=== PATIENT | male | born 1940 | race Two or more races ===

== ENCOUNTER 2018-01-18 15:51 | Inpatient (IN) | payer MEDICARE, MEDICAID ==
[~2018-01-18] VITALS: Ht 167.6 cm; Wt 78.0 kg
[~2018-01-18 15:51] MED LIST: ACET325T53 PO; CARB1TAB14 PO; DILT30TA2 PO; DOCU-270 PO; ENTA200T PO; LORA-259 PO; LUBI24CA5 PO; METF10004 PO; METO25TA6 PO; MULT1TAB73 PO; OMEP10CA4 PO; POLY17PO4 PO; SENN8.6C5 PO; SITA50TA PO; [UNRECOGNIZED DRUG - OTHER]
--- NOTE | 2018-01-18 16:00 | NUR ---
FROM [facility]- HEMATURIA, HYPOTENSIVE. SEEN BY MD FOR EVAL. VSS. SAFETY AND COMFORT MEASURES PROVIDED. WILL MONITOR.
[2018-01-18] MEDS ORDERED: CARB1TAB21 PO (16:09)
[2018-01-18] MEDS ORDERED: GABA-534 PO (16:09)
[2018-01-18] MEDS ORDERED: ENTA200T PO (16:09)
[2018-01-18] MEDS ORDERED: TAMS-12 PO (16:09)
[2018-01-18] MEDS ORDERED: TRAM50TA2 PO (16:09)
[2018-01-18] MEDS ORDERED: AMIN30LI4 PO (16:09)
[2018-01-18] MEDS ORDERED: MAGN400O6 PO (16:09)
[2018-01-18] MEDS ORDERED: DOCU-141 PO (16:09)
[2018-01-18] MEDS ORDERED: BLOO-697 IN (16:09)
[2018-01-18 16:23] LABS: BASOPHILS # (AUTO) 0.1 /CMM (0.0-0.2); BASOPHILS % (AUTO) 1.4 % (0.0-2.0); EOSINOPHILS % (AUTO) 2.6 % (0.0-6.0); HEMATOCRIT 35 % (39-51); HEMOGLOBIN 11.9 g/dL (13.5-17.5); LYMPHOCYTES # (AUTO) 1.3 /CMM (0.8-4.8); LYMPHOCYTES % (AUTO) 18.1 % (20.0-44.0); MEAN CORPUSCULAR HEMOGLOBIN 31 PG (26.0-33.0); MEAN CORPUSCULAR HGB CONC 34 g/dl (31.0-36.0); MEAN CORPUSCULAR VOLUME 89 fL (80-96); MONOCYTES # (AUTO) 0.3 /CMM (0.1-1.30); MONOCYTES % (AUTO) 4.8 % (2.0-12.0); NEUTROPHILS # (AUTO) 5.2 /CMM (1.8-8.9); NEUTROPHILS % (AUTO) 73.1 % (43.0-81.0); PLATELET COUNT (AUTO) 371 /CMM (150-450); RDW COEFFICIENT OF VARIATION 15.3 (11.5-15.0); RED BLOOD CELL COUNT(AUTO) 3.92 MIL/uL (4.5-6.0); WHITE BLOOD COUNT (AUTO) 7.1 K/uL (4.3-11.0)
[2018-01-18 16:33] LABS: CALCIUM, SERUM 8.7 mg/dL (8.5-10.1); CARBON DIOXIDE 25 mmol/L (21-32); CHLORIDE 105 mmol/L (98-107); CREATININE 1.2 mg/dL (0.6-1.3); GLUCOSE 98 mg/dL (74-106); POTASSIUM 4.3 mmol/L (3.5-5.1); SODIUM SERUM 141 mmol/L (136-145); UREA NITROGEN, BLOOD 29 mg/dL (7-18)
[2018-01-18 16:37] LABS: INR 0.97 (0.85-1.15)
[2018-01-18 16:38] LABS: ALANINE AMINOTRANSFERASE 12 U/L (12-78); ALBUMIN 3.1 g/dL (3.4-5.0); ALKALINE PHOSPHATASE 66 U/L (46-116); ASPARTATE AMINOTRANSFERASE 10 U/L (15-37); BILIRUBIN,DIRECT 0.1 mg/dL (0.0-0.2); BILIRUBIN,TOTAL 0.4 mg/dL (0.2-1.0); TOTAL PROTEIN, SERUM 6.8 g/dL (6.4-8.2)
--- NOTE | 2018-01-18 17:55 | NUR ---
NOTED STONE ON PENILE OPENING. MD AWARE, PULLED OUT STONE AND SENT TO LABS. URINE SAMPLE OBTAINED VIA IN AND OUTA CATH, SAMPLE SENT.
[2018-01-18 18:25] LABS: APPEARANCE,URINE Slightly Cloudy (CLEAR); BILIRUBIN,URINE Negative (NEGATIVE); BLOOD, URINE Large Ery/uL (NEGATIVE); COLOR,URINE Dark (YELLOW); KETONES,URINE Trace (NEGATIVE); LEUKOCYTE ESTERASE ,URINE Trace (NEGATIVE); NITRITE, URINE Negative (NEGATIVE); PH,URINE 5.5 (5.0-8.0); PROTEIN,URINE Negative (NEGATIVE); UGLUCOSE Negative (NEGATIVE); UROBILINOGEN,URINE 0.2 EU/dL (0.2)
[2018-01-18 18:38] LABS: BACTERIA,URINE Few /HPF (None Seen); RBC,URINE 21-50 /HPF (0-2); SQUAMOUS EPITHELIAL CELL,UR Few /HPF (None Seen)
--- NOTE | 2018-01-18 19:16 | NUR ---
ASSUMED CARE. RECEIVED REPORT FROM AM SHIFT SALLY ABDULLAHI. PT RESTING IN BED QUIETLY, NO ACUTE DISTRESS NOTED, RESP EVEN AND UNLABORED. PT ON CARDIAC MONITORING, CONTINUOUS POX, PLACE PT ON O2@2L/NC DUE TO PT O2 SAT 89% ON RA. PT AT BEDSIDE. WILL CONTINUE TO MONITOR PT CLOSELY.
--- NOTE | 2018-01-18 19:28 | NUR ---
REPORT GIVEN TO ED FOR SAMIRA.
--- NOTE | 2018-01-18 19:32 | NUR ---
Paged physician interventional cardiologist panel, Poncho Chen
--- NOTE | 2018-01-18 20:08 | NUR ---
PATIENT WILL B E ADMITTED TO MS 314-2 BUSINESS INTELLIGENCE MANAGER MARISOL LUJAN DX NEPHROLITHIASIS
--- NOTE | 2018-01-18 20:16 | NUR ---
REPORT CALLED TO M/S SALLY ERAZO. WILL TRANSPORT PT TO ROOM 314-2.
[2018-01-18 20:45] VITALS: BP 144/88
[2018-01-18] MEDS ORDERED: Z GUARD REMEDY 2 OZ OINT TP PRN (21:30)
[2018-01-18] MEDS ORDERED: MAG HYDROX/AL HYDROX/SIMETH 30 ML UDC PO PRN (21:30)
[2018-01-18] MEDS ORDERED: HYDROCODONE/APAP 5/325MG 1 EACH TABLET PO PRN (21:30)
[2018-01-18] MEDS ORDERED: MAGNESIUM HYDROXIDE 30 ML UDC PO PRN (21:30)
[2018-01-18] MEDS ORDERED: ONDANSETRON HCL/PF 4 MG/2 ML VIAL IVP PRN (21:30)
--- NOTE | 2018-01-18 21:45 | NUR ---
MS SALLY NEW ADMISSION NOTES RECEIVED PT FROM ER VIA [facility], ACCOMPANIED BY STAFF & TO ROOM 309-1 WITH C/O HEMATURIA & HYPOTENSION. A & O X 1, CONFUSED/FORGETFUL DUE TO DEMENTIA. NO S/S OF PAIN, NO SOB, NO ACUTE CHANGES NOTED. VS CHECKED & STABLE. NO HYPOTENSION NOTED. RESPONSIVE TO VERBAL/TACTILE STIMULI. BODY CHECK DONE & DOCUMENTED. BELONGING LIST REVIEWED BY CLAY STRUCTURE BUILDER AND SERVICER WITH . DENTURE/GLASSES LEFT @ [facility], PER . PLACED ON O2 @ 2 LPM FOR BERTHING COMFORT. INCONTINENT OF B & BM. IV ACCESS TO RFA, INTACT PATENT. ALL ORDERS REVIEWED WITH MD, NOTED & CARRIED OUT. SAFETY MEASURES IN PLACE. BED ALARM ON. BED IN LOW LOCKED POSITION. CALL LIGHT WITHIN REACH. PLACED CLOSE TO THE STATION FOR SAFETY. WILL MONITOR CLOSELY.
[2018-01-18 21:47] VITALS: BP 144/88
--- NOTE | 2018-01-18 22:15 | NUR ---
SEEN BY THERAPIST RRT PT SEEN & ASSESSED BY ROMANA DAMON. NO HEMATURIA NOTED WHILE CHANGED THE DIAPER. MARISOL STATED TO OBSERVE CLOSELY FOR HEMATURIA & HYPOTENSION. WILL MONITOR CLOSELY.
[2018-01-18] MEDS: IV NS 0.9% 1,000 ML IV PRN (22:27)
[2018-01-18] MEDS: TAMSULOSIN 0.4 MG CAP.SR.24H PO SCH (22:35)
[2018-01-18] MEDS: GABAPENTIN 300 MG CAPSULE PO SCH (22:36)
--- NOTE | 2018-01-18 22:37 | NUR ---
MS RN NOTE PO MEDS GIVEN WITH APPLE SAUCE, TOLERATED WELL SO FAR, NO COUGH NOTED, TAKES TIME TO SWALLOW. WILL MONITOR CLOSELY.
--- NOTE | 2018-01-19 03:16 | NUR ---
NO HEMATURIA NOTED CHANGED PT'S DIAPER, NO ACTIVE BLEEDING NOTED. NOTED TO BE INCONTINENT, URINATED DARK YELLOW COLOR URINE. ON IVF ORDERED. MONITORING CLOSELY.
--- NOTE | 2018-01-19 04:25 | NUR ---
MS RN NOTE PT IS AWAKE, ORAL CARE PROVIDED. ASSISTED WITH FEEDING OF APPLE SAUCE, SMALL AMOUNT BUT PT STARTED COUGHING. IN MORALES POSITION. STOPPED FEEDING HIM RIGHT AWAY. WILL WAIT UNTIL SWALLOW EVAL IS DONE. ON IVF ORDERED FOR HYDRATION. WILL ENDORSE TO AM RN FOR ASPIRATION PRECAUTIONS.
--- NOTE | 2018-01-19 05:30 | NUR ---
ms rn note verbalized that once pt gets discharged from the hospital, she wants him to go back to [facility]. will endorse to am rn to endorse to CM.
[2018-01-19 06:02] LABS: EOSINOPHILS % (AUTO) 0.3 % (0.0-6.0); HEMATOCRIT 36 % (39-51); HEMOGLOBIN 12.2 g/dL (13.5-17.5); LYMPHOCYTES # (AUTO) 0.5 /CMM (0.8-4.8); MEAN CORPUSCULAR HEMOGLOBIN 31 PG (26.0-33.0); MEAN CORPUSCULAR HGB CONC 34 g/dl (31.0-36.0); MEAN CORPUSCULAR VOLUME 92 fL (80-96); MONOCYTES # (AUTO) 0.4 /CMM (0.1-1.30); MONOCYTES % (AUTO) 3.1 % (2.0-12.0); NEUTROPHILS # (AUTO) 10.6 /CMM (1.8-8.9); NEUTROPHILS % (AUTO) 92.6 % (43.0-81.0); PLATELET COUNT (AUTO) 294 /CMM (150-450); RDW COEFFICIENT OF VARIATION 16.6 (11.5-15.0); RED BLOOD CELL COUNT(AUTO) 3.92 MIL/uL (4.5-6.0); WHITE BLOOD COUNT (AUTO) 11.4 K/uL (4.3-11.0)
[2018-01-19 06:22] LABS: CALCIUM, SERUM 8.4 mg/dL (8.5-10.1); CARBON DIOXIDE 22 mmol/L (21-32); CHLORIDE 107 mmol/L (98-107); CREATININE 1.1 mg/dL (0.6-1.3); GLUCOSE 144 mg/dL (74-106); MAGNESIUM 1.3 mg/dL (1.8-2.4); PHOSPHORUS 2.4 mg/dL (2.5-4.9); SODIUM SERUM 141 mmol/L (136-145); UREA NITROGEN, BLOOD 24 mg/dL (7-18)
[2018-01-19 06:23] LABS: CHOLESTEROL 139 mg/dL (<200); HDL CHOLESTEROL 43 mg/dL (40-60); LDL 90 mg/dL (0-99); THYROID STIMULATING HORMONE 1.252 uIU/mL (0.358-3.74); TRIGLYCERIDES 67 mg/dL (30-150)
--- NOTE | 2018-01-19 06:36 | NUR ---
MS RN CLOSING NOTES PT SLEPT INTERMITTENTLY. A & O X 1, CONFUSED/FORGETFUL. NO S/S OF PAIN, NO SOB, NO ACUTE CHANGES NOTED. NO HYPOTENSION NOTED. RESPONSIVE TO VERBAL/TACTILE STIMULI. ON O2 @ 2 LPM FOR BERTHING COMFORT. INCONTINENT OF B & BM. IV ACCESS TO RFA, INTACT PATENT WITH IVF ORDERED. NO HEMATURIA NOTED. SAFETY MEASURES IN PLACE. BED ALARM ON. BED IN LOW LOCKED POSITION. CALL LIGHT WITHIN REACH. WILL ENDORSE TO AM RN FOR CONTINUITY OF CARE.
--- NOTE | 2018-01-19 07:30 | NUR ---
RN OPENING NOTE RECEIVED PT. PT IS STABLE AND SLEEPING IN BED. NO S/S OF RESP DISTRESS OR SOB. PT DOES NOT APPEAR TO BE IN PAIN. NO S/S OF BLEEDING OR INDICATIONS OF PASSED KIDNEY STONE NOTED. IV ACCESS LOCATED ON RFA 18G INFUSING NS AT 75 ML/HR. PER FORTUNE TELLER REPORT, PT ASPIRATED ON APPLESAUCE DURING PO CUSTOMER CARE REPRESENTATIVE IN AM, WILL F/U WITH THERAPY FOR ST EVAL. SAFETY MEASURES IN PLACE, CALL LIGHT WITHIN REACH. WILL CONTINUE TO MONITOR.
[2018-01-19 08:00] VITALS: BP 92/54
[2018-01-19] MEDS: ENTACAPONE 200 MG TABLET PO SCH ×3 (08:22→17:29)
[2018-01-19] MEDS: CARBIDOPA/LEVODOPA 25/100 MG 1 UDTAB PO SCH ×3 (08:22→17:29)
[2018-01-19] MEDS: METOPROLOL TARTRATE 25 MG TABLET PO SCH ×2 (08:23→21:31)
[2018-01-19] MEDS: DILTIAZEM HCL 30 MG TABLET PO SCH (08:23)
[2018-01-19] MEDS: PROSTAT (PYXIS) 30 ML UDC PO SCH ×3 (09:00→17:00)
[2018-01-19] MEDS: DOCUSATE SODIUM 100 MG CAPSULE PO SCH ×3 (09:00→17:00)
--- NOTE | 2018-01-19 09:42 | NUR ---
RN NOTES PT ON ASPIRATION PRECAUTIONS. PT DOES NOT HAVE DENTURES AT BEDSIDE. PM NURSE REPORTED THAT PT ASPIRATED ON APPLESAUCE. CAPSULES AND THICK PROSTAT HELD FOR PRECAUTION.
[2018-01-19] MEDS: Magnesium 1GM/D5W 100ML PREMIX 100 ML IV SCH ×4 (11:16→16:11)
[2018-01-19] MEDS ORDERED: NEUTRA PHOS 1 POWD.PACKET PO ONE (15:30)
[2018-01-19 16:00] VITALS: BP 103/55
--- NOTE | 2018-01-19 18:53 | NUR ---
RN CLOSING NOTE PT IN BED RESTING. PO MEDS IN AM HELD PER ASPIRATION PRECAUTIONS, HOWEVER PT SWITCHED TO PUREED DIET AND ABLE TO EAT/TAKE MEDICATIONS. ALL PT NEEDS ANTICIPATED AND MET, SAFETY MEASURES IN PLACE, CALL LIGHT WITHIN REACH. WILL ENDORSE TO TELEPHONE OPERATOR RECEPTIONIST FOR SAMIRA.
[2018-01-19 20:00] VITALS: BP 96/66
--- NOTE | 2018-01-19 20:00 | NUR ---
Received pt. in bed resting, alert, awake, oriented x 1 to self and name, with mild confusion, on 2L/NC continuous, with 02 sat. of 100%. Pt. exhibit no s/s of sob, no s/s of dyspnea, lungs are diminished, no cough noted, breathing calm, regular and unlabored, none tele, pt. denies chest pain except flank pain when voiding, incontinent with bowel and bladder, on bedrest, turned and repositioned q 2 hrs. as needed, on fall and aspiration risk. Pt. HOB up after scooted up in bed. With regards to skin, pt. has Sacral and old healed scar, Right leg abrasion, and right and Left heel redness. Bowel sounds present, abdomen rigid, rounded and non-tender. IVF of NS @ 75 ml./hr. continuous @ the RFA G # 18. Pt. provided assistance and comfort of position after assessment done. Keep pt. safe, warm, clean, dry and comfortable in bed.
[2018-01-19] MEDS: TAMSULOSIN 0.4 MG CAP.SR.24H PO SCH (21:31)
[2018-01-19] MEDS: GABAPENTIN 300 MG CAPSULE PO SCH (21:31)
[2018-01-19] MEDS: SENNOSIDES 8.6 MG TABLET PO SCH (21:32)
[2018-01-20] MEDS: IV NS 0.9% 1,000 ML IV PRN (06:14)
[2018-01-20 07:01] LABS: CALCIUM, SERUM 7.8 mg/dL (8.5-10.1); CARBON DIOXIDE 23 mmol/L (21-32); CHLORIDE 106 mmol/L (98-107); CREATININE 1.1 mg/dL (0.6-1.3); GLUCOSE 147 mg/dL (74-106); PHOSPHORUS 2.6 mg/dL (2.5-4.9); POTASSIUM 4.2 mmol/L (3.5-5.1); SODIUM SERUM 139 mmol/L (136-145); UREA NITROGEN, BLOOD 20 mg/dL (7-18)
--- NOTE | 2018-01-20 07:32 | NUR ---
RN OPENING NOTE RECEIVED PT. PT IS STABLE AND SLEEPING IN BED. NO S/S OF RESP DISTRESS OR SOB. PT DOES NOT APPEAR TO BE IN PAIN. NO S/S OF BLEEDING OR INDICATIONS OF PASSED KIDNEY STONE NOTED. IV ACCESS LOCATED ON RFA 18G INFUSING NS AT 75 ML/HR. PER ELECTRICAL WIRING LINEMAN REPORT, NO REPORTS OF ASPIRATION DURING MED PASS/MEALS. ST EVAL YET TO BE PERFORMED, WILL F/U WITH THERAPY. SAFETY MEASURES IN PLACE, CALL LIGHT WITHIN REACH. WILL CONTINUE TO MONITOR.
[2018-01-20 08:00] VITALS: BP 97/63
[2018-01-20] MEDS: DILTIAZEM HCL 30 MG TABLET PO SCH (08:09)
[2018-01-20] MEDS: ENTACAPONE 200 MG TABLET PO SCH ×3 (08:09→16:41)
[2018-01-20] MEDS: CARBIDOPA/LEVODOPA 25/100 MG 1 UDTAB PO SCH ×3 (08:09→16:41)
[2018-01-20] MEDS: DOCUSATE SODIUM 100 MG CAPSULE PO SCH ×3 (08:10→16:41)
[2018-01-20] MEDS: METOPROLOL TARTRATE 25 MG TABLET PO SCH ×2 (08:10→21:50)
[2018-01-20] MEDS: PROSTAT (PYXIS) 30 ML UDC PO SCH ×3 (09:00→16:41)
--- NOTE | 2018-01-20 13:00 | NUR ---
RN NOTES BLADDER SCAN PERFORMED, SCAN FOUND 600 ML OF URINE RETAINED. STRAIGHT CATH INSERTED WITH URINE OUTPUT OF 850 ML. PT TOLERATED PROCEDURE, WILL CONTINUE TO MONITOR.
[2018-01-20 16:00] VITALS: BP 79/38
--- NOTE | 2018-01-20 18:39 | NUR ---
RN CLOSING NOTE PT IN BED RESTING. AT BEDSIDE. NO S/S OF SOB OR RESP DISTRESS. PT DOES NOT APPEAR TO BE IN PAIN. STRAIGHT CATH PERFORMED ON PT, WITH 850 ML URINARY OUTPUT. SAFETY MEASURES IN PLACE, CALL LIGHT WITHIN REACH. WILL ENDORSE TO DIRECTOR NETWORK DEVELOPMENT FOR SAMIRA.
[2018-01-20 20:00] VITALS: BP 101/51
--- NOTE | 2018-01-20 20:30 | NUR ---
Start of Shift Note: A/O [id number] in bed hob up semi jacques o2 @ 2 L n/c sats 98% I.V N.S. 0.9% @ 75 cc hr to Right ac rod well patent. no s/s of infection. Disp briefs clean and dry. Bilat L.E. dvt pumps on. Siderails up Call light within reach. No facial grimacing appears resting comfortably.
[2018-01-20] MEDS: TAMSULOSIN 0.4 MG CAP.SR.24H PO SCH (21:50)
[2018-01-20] MEDS: SENNOSIDES 8.6 MG TABLET PO SCH (21:50)
[2018-01-20] MEDS: GABAPENTIN 300 MG CAPSULE PO SCH (21:51)
[2018-01-21] MEDS: IV NS 0.9% 1,000 ML IV PRN ×2 (01:55→21:40)
--- NOTE | 2018-01-21 05:34 | NUR ---
End of shift: Remains lying in bed resting comfortably slept 9 hours. O 2 @ 2L N/c Check bladder area non distended. GREEN BUILDING ENERGY ENGINEER states changed disposable brief x4 during the shift. IV N.S. 0.9% cont to infuse @ 75 cchr to RFA without difficulty. Siderails up Call light within reach.
--- NOTE | 2018-01-21 07:10 | NUR ---
RN OPENING NOTES. PT RECEIVED A&0X1, MUMBLING. PT WITH O2 SUPPORT VIA NC AT 2LPM, WITHOUT S/S OF RESP DISTRESS. PT WITHOUT S/S OF PAIN OR DISCOMFORT. PT WITH IVC AT R FA INTACT, SL AND BANDAGED. PT BED IN LOWEST LOCKED POSITION WITH HANDRAILSX4 AND CALL [place] WITHIN REACH. PT APPEARS WITHOUT CONCERN OR COMPLAINT AT THIS TIME. WILL BRIEF FAMILY ON POC WHEN AVAILABLE.
[2018-01-21 08:00] VITALS: BP 117/76
--- NOTE | 2018-01-21 08:30 | NUR ---
MSRN NOTES. PT WITH FEVER 102. RECHECKED. FARE COLLECTOR AP NOTIFIED. PRN ANTIPYRETIC ADMIN WITH COOLING MEASURES INITIATED.
[2018-01-21] MEDS: METOPROLOL TARTRATE 25 MG TABLET PO SCH ×2 (08:36→21:16)
[2018-01-21] MEDS: CARBIDOPA/LEVODOPA 25/100 MG 1 UDTAB PO SCH ×3 (08:36→16:51)
[2018-01-21] MEDS: ACETAMINOPHEN 325 MG TABLET PO PRN ×2 (08:36→21:28)
[2018-01-21] MEDS: ENTACAPONE 200 MG TABLET PO SCH ×3 (08:36→16:51)
[2018-01-21] MEDS: DOCUSATE SODIUM 100 MG CAPSULE PO SCH ×3 (08:36→16:51)
[2018-01-21] MEDS: PROSTAT (PYXIS) 30 ML UDC PO SCH ×3 (08:43→13:00)
[2018-01-21] MEDS: DILTIAZEM HCL 30 MG TABLET PO SCH (08:44)
[2018-01-21 09:25] LABS: EOSINOPHILS % (AUTO) 0.2 % (0.0-6.0); HEMATOCRIT 33 % (39-51); HEMOGLOBIN 11.1 g/dL (13.5-17.5); LYMPHOCYTES # (AUTO) 0.5 /CMM (0.8-4.8); LYMPHOCYTES % (AUTO) 5.9 % (20.0-44.0); MEAN CORPUSCULAR HEMOGLOBIN 31 PG (26.0-33.0); MEAN CORPUSCULAR HGB CONC 34 g/dl (31.0-36.0); MEAN CORPUSCULAR VOLUME 92 fL (80-96); MONOCYTES # (AUTO) 0.4 /CMM (0.1-1.30); MONOCYTES % (AUTO) 4.4 % (2.0-12.0); NEUTROPHILS # (AUTO) 7.3 /CMM (1.8-8.9); NEUTROPHILS % (AUTO) 89.5 % (43.0-81.0); PLATELET COUNT (AUTO) 216 /CMM (150-450); RDW COEFFICIENT OF VARIATION 16.6 (11.5-15.0); RED BLOOD CELL COUNT(AUTO) 3.61 MIL/uL (4.5-6.0); WHITE BLOOD COUNT (AUTO) 8.2 K/uL (4.3-11.0)
[2018-01-21 09:33] LABS: CALCIUM, SERUM 7.6 mg/dL (8.5-10.1); CARBON DIOXIDE 25 mmol/L (21-32); CHLORIDE 103 mmol/L (98-107); CREATININE 1.1 mg/dL (0.6-1.3); GLUCOSE 204 mg/dL (74-106); SODIUM SERUM 137 mmol/L (136-145); UREA NITROGEN, BLOOD 15 mg/dL (7-18)
[2018-01-21] MEDS: TOBRAMYCIN/DEXAMETH OPHTH OINT 3.5 GM TUBE EACHEYE SCH ×3 (14:18→21:15)
[2018-01-21] MEDS ORDERED: VITAMINS A AND D 56.7 GM TUBE TP PRN (15:00)
[2018-01-21 16:00] VITALS: BP 102/46
[2018-01-21] MEDS ORDERED: PROSTAT (PYXIS) 30 ML UDC PO SCH (17:30)
--- NOTE | 2018-01-21 18:53 | NUR ---
RN CLOSING NOTES. PT RECEIVED A&0X1, AT BEDSIDE. PT WITH O2 SUPPORT VIA NC AT 2LPM, WITHOUT S/S OF RESP DISTRESS. PT WITHOUT S/S OF PAIN OR DISCOMFORT. PT WITH IVC AT R FA INTACT, SL AND BANDAGED. PT BED IN LOWEST LOCKED POSITION WITH HANDRAILSX4 AND CALL [place]O WITHIN REACH. WOUND CARE PER RX. ALL DAY NURSE DUTIES ATTENDED TO AND PT AND FAMILY ARE WITHOUT CONCERN OR COMPLAINT. WILL ENDORSE TO NIGHT NURSE AT BEDSIDE FOR SAIMRA.
--- NOTE | 2018-01-21 19:30 | NUR ---
RN OPENING NOTE RECEIVED PT IN BED WITH EYES CLOSED. A & O X 1, CONFUSED/FORGETFUL. NO S/S OF RESP DISTRESS OR SOB. PT DOES NOT APPEAR TO BE IN PAIN. NO S/S OF BLEEDING. PER AM RN, PT HAD WET DIAPERS, NO NEED FOR IN & OUT CATH DURING AM SHIFT. IV ACCESS LOCATED ON RFA 18G INFUSING NS AT 75 ML/HR. PER PSYCHIATRIC NP REPORT, SAFETY MEASURES IN PLACE, BED IN LOW LOCKED POSITION. CALL LIGHT WITHIN REACH. WILL CONTINUE TO MONITOR.
[2018-01-21 20:00] VITALS: BP 101/63
[2018-01-21] MEDS: GABAPENTIN 300 MG CAPSULE PO SCH (21:15)
[2018-01-21] MEDS: TAMSULOSIN 0.4 MG CAP.SR.24H PO SCH (21:15)
[2018-01-21] MEDS: SENNOSIDES 8.6 MG TABLET PO SCH (21:15)
--- NOTE | 2018-01-21 21:28 | NUR ---
PRN TYLENOL GIVEN PT NOTED WITH BODY TEMP OF 99.4 @ THIS TIME. PRN TYLENOL GIVEN ORDERED. NO S/S OF ACTIVE BLEEDING/HEMATURIA NOTED. WILL RECHECK BODY TEMP AGAIN.
--- NOTE | 2018-01-21 22:30 | NUR ---
MS RN NOTE COOLING MEASURES WERE DONE, REMOVED EXTRA CLOTHING FOR BODY TEMP OF 99.4 @ 2125. TYLENOL WAS EFFECTIVE. BODY TEMP NOTED TO BE 98.7 @ THIS TIME. WILL MONITOR CLOSELY.
--- NOTE | 2018-01-22 01:50 | NUR ---
MS RN NOTE PT'S BODY TEMP NOTED TO BE 98.6. NO FEVER NOTED.
[2018-01-22] MEDS: TOBRAMYCIN/DEXAMETH OPHTH OINT 3.5 GM TUBE EACHEYE SCH ×3 (02:36→13:46)
--- NOTE | 2018-01-22 06:41 | NUR ---
RN CLOSING NOTE PT SLEPT INTERMITTENTLY @ NIGHT & IS RESTING IN BED WITH EYES CLOSED. A & O X 1, CONFUSED/FORGETFUL. NO S/S OF RESP DISTRESS OR SOB. PT DOES NOT APPEAR TO BE IN PAIN. NO S/S OF BLEEDING. PT HAD WET DIAPERS, NO HEMATURIA NOTED. IV ACCESS LOCATED ON RFA 18G INFUSING NS AT 75 ML/HR. BODY TEMP IS 98.6 @ THIS TIME. IN SEMI MORALES POSITION. SAFETY MEASURES IN PLACE, BED IN LOW LOCKED POSITION. CALL LIGHT WITHIN REACH. WILL ENDORSE TO AM RN FOR CONTINUITY OF CARE.
--- NOTE | 2018-01-22 07:10 | NUR ---
RN OPENING NOTES RECEIVED PT. IN BED A&OX1, CONFUSED. BREATHING UNLABORED, AND EVENLY ON OXYGEN AT 2L/MIN VIA NASAL CANNULA. IV FLUIDS RUNNING AT 75 ML/HR. BED IS IN LOWEST, AND LOCKED POSITION. 2 SIDE RAIL UP, AND CALL LIGHT WITHIN REACH.
[2018-01-22 08:00] VITALS: BP 136/75
[2018-01-22] MEDS: CARBIDOPA/LEVODOPA 25/100 MG 1 UDTAB PO SCH ×3 (09:00→13:46)
[2018-01-22] MEDS: ENTACAPONE 200 MG TABLET PO SCH ×3 (09:00→13:46)
[2018-01-22] MEDS: DOCUSATE SODIUM 100 MG CAPSULE PO SCH ×2 (10:08→13:46)
[2018-01-22] MEDS: DILTIAZEM HCL 30 MG TABLET PO SCH (10:11)
[2018-01-22] MEDS: METOPROLOL TARTRATE 25 MG TABLET PO SCH (10:11)
[2018-01-22] MEDS ORDERED: PROSOURCE / PROSTAT (PYXIS) 30 ML UDC PO SCH (10:13)
--- NOTE | 2018-01-22 10:33 | NUR ---
PT. REFUSED TO SWALLOW SINEMET, AND COMANTIN. PT. WAS SPIT OUT MEDICATIONS.
[2018-01-22] MEDS ORDERED: CEPH-569 PO (12:39)
[2018-01-22 16:00] VITALS: BP 129/67
--- NOTE | 2018-01-22 16:45 | NUR ---
MEAT COUNTER CLERK PT. WAS DISCHARGED TO [facility] IN STABLE CONDITION. PT. WAS TAKEN BY AMBULANCE, WITH ALONGSIDE. REPORT WAS GIVEN TO TIKA AT [facility] VIA PHONE. BELONGINGS LIST WAS CHECKED AND SIGNED. IV AND ID BAND WAS REMOVED WITHOUT COMPLICATIONS. DISCHARGE INSTRUCTIONS WERE GIVEN TO TIKA AT [facility]. REPORT, AND DISCHARGE PAPERS WERE GIVEN TO AMBULANCE CREW. PICTURES WERE TAKEN AND PLACED IN CHART.
== END 2018-01-22 16:53 | DRG 693 ==
LOC: ER 15:53 → MED 20:30
PROVIDERS: ADMIT Nurse Practitioner Acute Care; ATTEND Nurse Practitioner Acute Care
DX: N20.0 Calculus of kidney (principal); N17.0 Acute kidney failure with tubular necrosis; G93.49 Other encephalopathy; D68.59 Other primary thrombophilia; E44.1 Mild protein-calorie malnutrition; R31.0 Gross hematuria; G20 Parkinson's disease; F02.80 Dementia in other diseases classified elsewhere, unspecified severity, without behavioral disturbance, psychotic disturbance, mood disturbance, and anxiety; N40.0 Benign prostatic hyperplasia without lower urinary tract symptoms; K21.9 Gastro-esophageal reflux disease without esophagitis; F41.9 Anxiety disorder, unspecified; I25.10 Atherosclerotic heart disease of native coronary artery without angina pectoris; E78.5 Hyperlipidemia, unspecified; Z79.84 Long term (current) use of oral hypoglycemic drugs; Z79.899 Other long term (current) drug therapy; M19.90 Unspecified osteoarthritis, unspecified site; K59.00 Constipation, unspecified; N18.9 Chronic kidney disease, unspecified; D64.9 Anemia, unspecified; E11.22 Type 2 diabetes mellitus with diabetic chronic kidney disease; D63.8 Anemia in other chronic diseases classified elsewhere; Z74.09 Other reduced mobility; Z98.890 Other specified postprocedural states; L89.621 Pressure ulcer of left heel, stage 1; L89.611 Pressure ulcer of right heel, stage 1; D69.2 Other nonthrombocytopenic purpura; K80.20 Calculus of gallbladder without cholecystitis without obstruction; L22 Diaper dermatitis; L85.3 Xerosis cutis
CPT/HCPCS: 36415; 71045-TC; 80048-TC; 80061-TC; 80076-TC; 81000-TC; 83735-TC; 84100-TC; 84443-TC; 85025-TC; 85730-TC; 87040-TC; 87081-TC; 87086-TC; 87186-TC; 92526; 92611-TC; A4606; J3475; J7030; Z7610